=== PATIENT | male | born 1945 | race Caucasian/White ===

== ENCOUNTER 2025-04-09 17:25 | Emergency (ER) | payer OTHER, SELFPAY ==
[2025-04-09] VITALS (14 sets, daily range): BP systolic 108–140; BP diastolic 58–70; PULSE 65–80; RESP 15–25; TEMP 36.6; O2SAT 86–99; BMI 34.8
[2025-04-09 17:46] LABS: Add Manual Diff / Slide Review NO; Hematocrit 42.4 % (41-53); Hemoglobin 14.8 g/dL (13.5-17.5); Lymphocytes Absolute Auto 2900 /uL (1100-4500); Mean Corpuscular HGB Conc 34.8 % (30-36); Mean Corpuscular Hemoglobin 32.7 PG (26-34); Mean Corpuscular Volume 93.9 fL (80-100); Platelet Count 198 X10^3/uL (150-400)
--- NOTE | 2025-04-09 17:48 | ED_ITS ---
HPI - Abdominal Pain
--- NOTE | 2025-04-09 17:48 | ED.ABDPAIN ---
HPI - Abdominal Pain General Chief Complaint: Abdominal Pain Stated Complaint: chest pain Time Seen by Provider: 04/09/25 17:48 Source: patient Mode of arrival: Ambulatory History of Present Illness HPI narrative: 79-year-old gentleman history of colon cancer in 2008 partial colectomy presents with epigastric pain radiating to bilateral rib region seen by EMS at the station with normal EKG for which he took 2 baby aspirins prior to arrival. He denies any chest pain, shortness of breath, dyspnea on exertion, diaphoresis, constipation, rectal bleeding, hematuria, cough, sore throat, fever, chills, body aches. Other than what is stated 14 point review of system is negative. Related Data Home Medications ?Medication ?Instructions ?Recorded ?Confirmed ASPIRIN (#ASPIR 81) 81 mg PO Q DAY ##0 03/29/11 Multivitamin, Minerals, and 1 tab PO Q DAY ##0 03/29/11 (#CENTRUM SILVER) cholecalciferol (vitamin D3) 50 2,000 iu PO Q DAY ##0 03/29/11 mcg (2,000 unit) capsule (Vitamin D3) Allergies Allergy/AdvReac Type Severity Reaction Status Date / Time INGREDIENT: NKDA - NO KNOWN Allergy Unknown Uncoded 04/10/25 07:03 DRUG ALLERGIES Review of Systems Review of Systems ROS Unobtainable: All systems reviewed & are unremarkable except as noted in HPI and below Patient History Medical History (Updated 04/10/25 @ 07:03 by Lady Ashley Mock) Hypertension Hyperlipidemia Arthritis Colon cancer Surgical History (Updated 04/10/25 @ 07:03 by Lady Ashley Mock) History of hernia surgery Social History (System 04/10/25 @ 07:03 by Lady Ashley Mock) Smoking Status: Never smoker Smoking Status: Never smoker Exam Narrative Exam Narrative: GENERAL: [79] year old patient appears stated age. Well-developed patient, in mild distress. HEAD: Atraumatic. Normocephalic. EYES: Pupils equal round and reactive. Extraocular motions intact. No scleral icterus. No injection or drainage. ENT: Nose without bleeding, purulent drainage. Throat without erythema, tonsillar hypertrophy or exudate. Airway patent. NECK: Trachea midline. Non tender CARDIOVASCULAR: Regular rate and rhythm without murmurs, gallops, or rubs. RESPIRATORY: Clear to auscultation. Breath sounds equal bilaterally. No wheezes, rales, or rhonchi. GASTROINTESTINAL: Abdomen soft, epigastric TTP no r/r/g nondistended. EXTREMITIES: No edema or joint tenderness. BACK: Nontender without deformity or crepitance. No flank tenderness. NEURO: AOx3. SKIN: No rash or erythema of visible areas Initial Vital Signs Initial Vital Signs: Vital Signs Temperature 97.8 F 04/09/25 17:28 Pulse Rate 79 04/09/25 17:28 Respiratory Rate 18 04/09/25 17:28 Blood Pressure 140/70 04/09/25 17:28 Pulse Oximetry 96 04/09/25 17:28 Oxygen Delivery Method Room Air 04/09/25 17:28 Course Orders Ordered: Discontinued Medications Hydromorphone HCl (Hydromorphone 1 Mg/Ml Syringe) 1 mg IV NOW ONE Stop: 04/09/25 20:50 Last Admin: 04/09/25 21:20 Dose: 1 mg Documented By: TAMI Lactated Ringer's (Lactated Ringers) 1,000 mls @ 1,000 mls/hr IV BOLUS ONE Stop: 04/09/25 18:54 Last Infusion: 04/09/25 18:42 Dose: Infused Documented By: Admin: 04/09/25 18:03 Dose: 1,000 mls/hr Documented By: TAMI Ketorolac Tromethamine (Ketorolac 30 Mg/Ml Vial) 15 mg IV NOW ONE Stop: 04/09/25 17:56 Last Admin: 04/09/25 18:02 Dose: 15 mg Documented By: TAMI Ondansetron HCl (Ondansetron 4 Mg/2 Ml Inj) 4 mg IV NOW PRN PRN Reason: Nausea And Vomiting Last Admin: 04/09/25 18:03 Dose: 4 mg Documented By: TAMI Ondansetron HCl (Ondansetron 4 Mg Odt) 4 mg PO NOW PRN PRN Reason: Nausea And Vomiting Vital Signs Vital signs: Vital Signs - 8 hr 04/09/25 17:28 04/09/25 17:35 04/09/25 17:44 Temperature 97.8 F Pulse Rate 79 79 Respiratory Rate 18 Blood Pressure 140/70 119/65 Pulse Oximetry 96 Oxygen Delivery Method Room Air 04/09/25 17:44 04/09/25 18:00 04/09/25 18:00 Temperature Pulse Rate 68 67 Respiratory Rate 18 15 Blood Pressure 108/58 L Pulse Oximetry 98 94 Oxygen Delivery Method 04/09/25 18:30 04/09/25 18:30 04/09/25 19:00 Temperature Pulse Rate 65 74 Respiratory Rate 20 25 H Blood Pressure 110/59 L Pulse Oximetry 86 L 99 Oxygen Delivery Method 04/09/25 19:30 04/09/25 20:00 Temperature Pulse Rate 75 75 Respiratory Rate 21 18 Blood Pressure Pulse Oximetry 98 97 Oxygen Delivery Method MDM - Abdominal Pain Lab Data 04/09/25 17:35 04/09/25 17:35 Labs: Lab Results 04/09/25 04/09/25 Range/Units 17:35 22:13 WBC 7.2 (4.5-11.0) X10^3/uL RBC 4.52 (4.5-5.9) X10^6/uL Hgb 14.8 (13.5-17.5) g/dL Hct 42.4 (41-53) % MCV 93.9 (80-100) fL MCH 32.7 (26-34) PG MCHC 34.8 (30-36) % RDW 13.0 (11.6-14.8) % Plt Count 198 (150-400) X10^3/uL Neut % (Auto) 50.0 (50-75) % Lymph % (Auto) 40.3 H (25-40) % Rush % (Auto) 7.3 (3-14) % Eos % (Auto) 1.5 L (2-4) % Baso % (Auto) 0.9 (0-2) % Neut # (Auto) 3600 (6863-8465) /uL Lymph # (Auto) 2900 (0275-2059) /uL Rush # (Auto) 500 (0-900) /uL Eos # (Auto) 100 (0-450) /uL Baso # (Auto) 100 (0-100) /uL Sodium 138 (137-145) mmol/L Potassium 4.0 (3.4-5.1) mmol/L Chloride 101 (98-107) mmol/L Carbon Dioxide 29 (22-32) mmol/L BUN 28 H (9-20) mg/dL Creatinine 1.16 (0.66-1.25) mg/dL Estimated GFR > 60 (>60) mL/min BUN/Creatinine Ratio 24.1 H (6-22) Glucose 122 H (70-99) mg/dL Calcium 9.3 (8.4-10.2) mg/dL Total Bilirubin 0.6 (0.2-1.3) mg/dL AST 66 H (17-59) IU/L ALT 41 (<50) IU/L Alkaline Phosphatase 67 (38-126) U/L Troponin I < 0.012 (0.01-0.034) ng/mL Total Protein 7.9 (6.3-8.2) g/dL Albumin 4.4 (3.5-5.0) g/dL Globulin 3.5 (1.7-4.1) g/dL Albumin/Globulin Ratio 1.3 (1.0-2.8) Lipase 45 (23-300) U/L Ur Bilirubin Confirm Negative (Negative) Urine RBC 0-1/hpf (0-5/HPF) Urine WBC 1-5/hpf (0-5/HPF) Ur Squamous Epith Cells 0-1 /hpf (0-5/HPF) Urine Bacteria Occasional (0-1) (None) Ur Culture Indicated? Cult not indicated Vol Urine Centrifuged 10ml (spun) Point of care testing: Urine Dip Bedside Urine Glucose Negative Bedside Urine Bilirubin + 1 Bedside Urine Ketone - Negative Urine Specific [place] 1.010 Bedside Urine Occult Blood +/- Bedside Urine pH 7 Bedside Urine Protein +/- 15 Bedside Urine Urobilinogen 1+ 2mg Bedside Urine Nitrite - Negative Bedside Urine Leukocytes + [address] scan - abdomen/pelvis: Radiologist's Impression: [place] [address] CT Scan Report Signed Patient: Solitario Levine MR#: [id number] : 1945 Acct:[id number] Age/Sex: 79 / M Date of Service: 04/09/25 Loc: ED Accession Number: [id number] Procedure: CT abdomen pelvis w con Ordering Provider: Bereket Mi D.O. PROCEDURE: CT ABDOMEN PELVIS W CON INDICATIONS: abd pain/ hx of colon cancer TECHNIQUE: After the administration of intravenous contrast, axial sections acquired from the lung bases to the pubic symphysis. Coronal and sagittal reformats were performed. For radiation dose reduction, the following was used: automated exposure control, adjustment of mA and/or kV according to patient size. COMPARISON: None. FINDINGS: Image quality: Diagnostic. Lower Chest: 4 mm solid nodule in the right lower lobe, indeterminate in the setting of malignancy (series 3, image 8). Moderate hiatal hernia. ABDOMEN: Liver: No solid mass. Gallbladder: Cholelithiasis without wall thickening or adjacent fat stranding to suggest acute cholecystitis. Biliary ducts: No biliary dilation. Possible 3 mm stone in the distal common bile duct (series 2, image 64). Pancreas: No ductal dilation. Spleen: Size is within normal limits. Adrenal Glands: No adrenal nodules. Kidneys and Ureters: No hydronephrosis. No solid mass. No complex renal cystic lesion which requires follow up. Renal sinus cysts. Small burden of punctate right-sided nonobstructing nephrolithiasis. Stomach and Bowel: Normal colonic caliber, without significant wall thickening. Partial colectomy, surgical anastomosis in the deep pelvis. No adjacent nodularity. Peritoneum: No abnormal intraperitoneal fluid. No free air. Ventral Wall: No significant ventral hernia. Abdominal Nodes: No retroperitoneal or mesenteric adenopathy by size criteria. Vessels: Aorta and inferior vena cava are normal in size. PELVIS: Pelvic Organs: Prostate is enlarged. Bladder: No bladder wall thickening, accounting for underdistention. Pelvic Nodes: No enlarged lymph nodes. Miscellaneous: No inguinal hernias are seen. Bones: No aggressive osseous abnormality. L2 vertebral hemangioma. IMPRESSION: Cholelithiasis without wall thickening or adjacent fat stranding to suggest acute cholecystitis. Possible 2-3 mm stone in the distal common bile duct, without intrahepatic or extrahepatic biliary dilation. Moderate hiatal hernia. Dictated by: Doug Garcia M.D. on 04/09/2025 at 19:24 Approved by: Doug Garcia M.D. on 04/09/2025 at 19:27 ECG Data Interpretation: NSR HR 70 AR 152 QRS [address]-t wave change MDM Narrative Medical decision making narrative: All lab work, vital signs, nurse triage note, medication list, previous ER visits, and all imaging studies reviewed. Case d/w Dr. Gerry MCKEON MD who has graciously accepted the patient for inpatient admission. WBC 7.2 hemoglobin 14.8 platelets 198 sodium 138 potassium 4.0 chloride 101 229 BUN 28 creatinine 1.16 glucose 122 T bili 0.[address] scan showed cholelithiasis without wall thickening or adjacent fat stranding to suggest acute cholecystitis. Possible 2-3 mm stone in the distal common bile duct without intrahepatic or extra hepatic biliary dilatation. Moderate hiatal hernia. Case d/w hospitalist who has accepted pt for admission Discharge Plan Departure [facility] Disposition: [facility] Clinical Impression: Choledocholithiasis Prescriptions: No Action ASPIRIN (#ASPIR 81) 81 mg PO Q DAY Qty: 0 cholecalciferol (vitamin D3) [Vitamin D3] 2,000 UNIT capsule 2,000 iu PO Q DAY Qty: 0 Multivitamin, Minerals, and (#CENTRUM SILVER) 1 tab PO Q DAY Qty: 0
--- NOTE | 2025-04-09 17:55 | DI.CT.S_ITS ---
PROCEDURE: CT ABDOMEN PELVIS W CON
[2025-04-09 17:59] LABS: Alanine Aminotransferase 41 IU/L (<50); Albumin 4.4 g/dL (3.5-5.0); Albumin Globulin Ratio 1.3 (1.0-2.8); Alkaline Phosphatase 67 U/L (38-126); Blood Urea Nitrogen 28 mg/dL (9-20); Calcium 9.3 mg/dL (8.4-10.2); Carbon Dioxide 29 mmol/L (22-32); Chloride 101 mmol/L (98-107); Estimated Glomerular Filt Rate > 60 mL/min (>60); Globulin 3.5 g/dL (1.7-4.1); Glucose 122 mg/dL (70-99); HEMOLYSIS 17 (0-50); Lipase 45 U/L (23-300); Potassium 4.0 mmol/L (3.4-5.1); Sodium 138 mmol/L (137-145); Total Protein 7.9 g/dL (6.3-8.2)
[2025-04-09] MEDS: KETOROLAC 30 MG/ML VIAL 15 MG IV (18:02)
[2025-04-09] MEDS: LACTATED RINGERS 1,000 ML 1000 ML IV (18:03)
[2025-04-09] MEDS: ONDANSETRON 4 MG/2 ML INJ IV (18:03)
[2025-04-09 18:10] LABS: Troponin I < 0.012 ng/mL (0.01-0.034)
[2025-04-09 22:32] LABS: Culture Indicated Urine Cult Not Indicated; Ictotest Urine Negative (Negative)
== END 2025-04-09 22:40 | disposition short-term general hospital (02) ==
PROVIDERS: Emergency Provider Family Medicine
DX: K80.50 Calculus of bile duct without cholangitis or cholecystitis without obstruction (principal); R07.81 Pleurodynia
CPT/HCPCS: 36415; 74177; 80053; 81003; 81015; 83690; 84484; 85025; 93005; 96361; 96374; 96375; 99284; J1171; J1885; J2405; J7120; Q9967